=== PATIENT | female | born 1980 | race Caucasian/White ===

== ENCOUNTER 2018-10-01 15:21 | Emergency (ER) | payer OTHER ==
[~2018-10-01] VITALS: Ht 154.9 cm; Wt 64.0 kg
[2018-10-01 15:35] VITALS: Ht 154.9 cm; Wt 64.0 kg
[2018-10-01 17:22] VITALS: BP 129/91
== END 2018-10-01 17:22 | disposition home or self-care (01) ==
LOC: ED 15:21
DX: G89.29 Other chronic pain (principal); M54.6 Pain in thoracic spine; F17.210 Nicotine dependence, cigarettes, uncomplicated; F41.9 Anxiety disorder, unspecified; F32.9 Major depressive disorder, single episode, unspecified; Z98.890 Other specified postprocedural states; Z88.8 Allergy status to other drugs, medicaments and biological substances
CPT/HCPCS: J1885